=== PATIENT | male | born 1980 | race Caucasian/White ===

== ENCOUNTER 2017-02-17 13:50 | Emergency (ER) | payer SELFPAY ==
[2017-02-17 13:59] VITALS: BP 149/80
--- NOTE | 2017-02-17 14:15 | ERNOTE ---
Upper Extremity HPI - Narrative Date of Service: 02/17/17 - General Extremities Pain Location: shoulder: right Time Seen by Provider: 02/17/17 14:04 Source: patient, RN notes reviewed Exam Limitations: no limitations - Immun/Allergies/Home Medications Immunizations: IMMUNIZATION HX Immunizations Up to Date Yes History of Influenza Vaccine No Hx Pneumococcal Vaccination No Allergies/Adverse Reactions: Allergies Allergy/AdvReac Type Severity Reaction Status Date / Time No Known Allergies Allergy Verified 02/17/17 13:59 Home Medications: HOME MEDICATIONS Cyclobenzaprine HCl [Flexeril] 10 mg PO TID PRN #30 tab 01/20/16 [Last Taken Unknown] Ibuprofen [Motrin] 800 mg PO QID PRN 02/17/17 [Last Taken Unknown] Tramadol HCl [Rybix Odt] 50 mg PO TID 02/17/17 [Last Taken Unknown] - History of Present Illness Narrative: 36 y/o male presents to the ED for right shoulder pain that was present when he woke up on 02/12/17. He denies any injury but does do a lot of heavy lifting at his job. He was seen in the ED at [facility] 3 days ago. He was given Toradol and Valium without improvement. He was prescribed ibuprofen, Tramadol and Flexeril but is still having severe pain. No imaging was done. He denies having problems with the shoulder in the past. When he began having pain, he had just finished taking a course of prednisone for a rash that was thought to be bug bites. His right arm was also swollen at that time without any clear cause. Date (Duration): 02/12/17 Occurred: last week Location of Incident: home Method of Injury: Reports: no apparent injury Associated Symptoms: Denies: tingling, weakness, numbness distally Other Injuries: Reports: none Prior Treament: Reports: recently seen Review of Systems - Review of Systems Constitutional: Absent: recent illness, fever, chills EYE: Present: no symptoms reported ENT: Present: no symptoms reported Respiratory: Absent: shortness of breath, cough Cardiology: Absent: chest pain, syncope Gastrointestinal/Abdominal: Absent: nausea, vomiting, abdominal pain Genitourinary: Present: no symptoms reported Musculoskeletal: Present: muscle pain, joint pain. Absent: joint swelling Skin: Absent: rash, lesions, lumps Neurological: Absent: weakness, numbness, tingling Endocrine: Present: no symptoms reported Hematologic/Lymphatic: Present: no symptoms reported Psych: Present: no symptoms reported - Patient's Past Medical History Patient History - Medical: Depression Patient History - Cardiac/Respiratory: No pertinent hx Patient History - Cancer: No Hx of Cancer Patient History - Surgical Procedures: Cholecystectomy, Vasectomy, Other Patient History - Other: None - Social History Living Situations: home Abuse History: No History of abuse Psych History: Hx of Depression Smoking Status: Current every day smoker Cigarettes Packs Per Day: 1.5 Have you smoked in the past 12 months: Yes Alcohol Use: occasionally Drug Use: none - Immunizations Immunizations Up to Date: Yes Hx Pneumococcal Vaccination: No History of Influenza Vaccine: No Physical Exam - Physical Exam General Appearance: Present: wd/wn, alert, no apparent distress Neck: Present: normal inspection, nontender, supple, full range of motion Respiratory: Present: no respiratory distress, normal breath sounds, no accessory muscle use, lungs clear Cardiovascular/Chest: Present: regular rate, rhythm, no murmur Extremity Exam: Present: no edema, decreased range of motion - Right shoulder, other - Diffuse right shoulder tenderness. Absent: joint redness, joint swelling, extremity edema Neurological Exam: Present: alert, oriented, no motor/sensory deficits, other - dysphoric appearing. Absent: normal mood/affect Skin Exam: Present: normal color, warm/dry ED Progress - Vital Signs Patient's Vital Signs:: I have reviewed the patient's vital signs. Vital Signs: Vital Signs 02/17/17 13:55 Temperature 36.8 C Pulse Rate 83 Respiratory 16 Rate Blood Pressure 149/80 O2 Sat by Pulse 97 Oximetry - X-Ray X-Ray #1 X-Ray: shoulder Interpretation: Reviewed by me X-ray Comments: No acute osseous findings - Progress/Reassessment Chief Complaint: Shoulder Injury/Pain Progress:: Unchanged Plan - Plan Plan: Discussed normal xray findings. Patient has contacted orthopedics at [facility] for f/ u but had not gotten a call back - encouraged to contact them again or to contact ortho here. Departure Clinical Impression: Shoulder pain, right Qualifiers: Chronicity: acute Qualified Code(s): M25.511 - Pain in right shoulder - Departure Disposition: Home Follow Up Needed Condition: Stable Instructions: Shoulder Pain, [id number] Additional Instructions: Continue current medications - mainly the ibuprofen Contact orthopedics for follow-up
== END 2017-02-17 14:57 | disposition home or self-care (01) ==
LOC: ER 13:50
DX: M25.511 Pain in right shoulder (principal); F17.200 Nicotine dependence, unspecified, uncomplicated